=== PATIENT | female | born 1960 | race Caucasian/White ===

== ENCOUNTER 2016-11-13 08:30 | Day surgery (SDC) | payer OTHER ==
[~2016-11-13] VITALS: Ht 154.9 cm; Wt 44.5 kg
[~2016-11-13 08:30] MED LIST: ADVIL200 MG PO; ASPIR 8181 M1 PO; ATORVASTATIN TAB 40M PO; CELEXA40 MG PO; CORGARD80 MG PO; CRESTOR40 MG PO; CRESTOR5 MG PO; CYCLOBENZAPRINE5 MG PO; CYMBALTA30 MG PO; FIORICET 50-301 EACH PO; FIORICET,ESG1 TABLET PO; FLEXERIL5 MG PO; HYDROCODON-ACE1 EAC7 PO; LIPITOR40 MG PO; LIPITOR80 MG PO; LOPRESSOR50 MG PO; METOPROLOL TAR100 MG PO; NEURONTIN100 MG PO; NORVASC5 MG PO; OxyCONTIN PO; PLAVIX75 MG PO; PROVENTIL,2.5 MG/3 M IH; Pravachol PO; SUMATRIPTAN SU100 MG PO; TOPAMAX100 MG PO; TOPAMAX200 MG PO; TRAMADOL HCL50 MG PO; VICODIN 5-3001 EACH PO; VICODIN ES 7.51 EAC1 PO; ZOFRAN4 MG PO; oxyCODONE PO
== END 2016-11-13 10:32 | disposition home or self-care (01) ==
LOC: PAIN 08:30 → SDC 09:15 → PAIN 10:32
PROC: 3E0S33Z Introduction of Anti-inflammatory into Epidural Space, Percutaneous Approach (ICD-10-PCS; principal; 2016-11-13)
DX: M50.123 Cervical disc disorder at C6-C7 level with radiculopathy (principal); F41.9 Anxiety disorder, unspecified; M47.22 Other spondylosis with radiculopathy, cervical region; G89.29 Other chronic pain; R51 Headache; M79.1 Myalgia; F17.200 Nicotine dependence, unspecified, uncomplicated; I73.9 Peripheral vascular disease, unspecified; I10 Essential (primary) hypertension; E78.5 Hyperlipidemia, unspecified; Z95.820 Peripheral vascular angioplasty status with implants and grafts
CPT/HCPCS: J1030; J2250; J3010

== ENCOUNTER 2017-01-22 08:21 | Day surgery (SDC) | payer OTHER ==
[~2017-01-22] VITALS: Ht 154.9 cm; Wt 44.5 kg
== END 2017-01-22 09:50 | disposition home or self-care (01) ==
LOC: PAIN 08:21 → SDC 09:00 → PAIN 09:00
DX: M47.812 Spondylosis without myelopathy or radiculopathy, cervical region (principal); F41.9 Anxiety disorder, unspecified; Z79.891 Long term (current) use of opiate analgesic; C50.919 Malignant neoplasm of unspecified site of unspecified female breast; R09.89 Other specified symptoms and signs involving the circulatory and respiratory systems; E78.5 Hyperlipidemia, unspecified; I73.9 Peripheral vascular disease, unspecified; M85.80 Other specified disorders of bone density and structure, unspecified site; I10 Essential (primary) hypertension; F17.200 Nicotine dependence, unspecified, uncomplicated
CPT/HCPCS: J1030; J2250; J3010; S0020

== ENCOUNTER 2017-01-29 08:39 | Day surgery (SDC) | payer OTHER ==
[~2017-01-29] VITALS: Ht 157.5 cm; Wt 45.4 kg
== END 2017-01-29 09:58 | disposition home or self-care (01) ==
LOC: PAIN 08:39
DX: M47.22 Other spondylosis with radiculopathy, cervical region (principal); F41.9 Anxiety disorder, unspecified; G89.29 Other chronic pain; Z85.3 Personal history of malignant neoplasm of breast; E78.5 Hyperlipidemia, unspecified; I10 Essential (primary) hypertension; I73.9 Peripheral vascular disease, unspecified; F17.200 Nicotine dependence, unspecified, uncomplicated; Z79.82 Long term (current) use of aspirin
CPT/HCPCS: J1030; J2250; J3010; S0020

== ENCOUNTER 2017-04-20 11:58 | Day surgery (SDC) | payer OTHER ==
[~2017-04-20] VITALS: Ht 154.9 cm; Wt 48.5 kg
== END 2017-04-20 14:20 | disposition home or self-care (01) ==
LOC: PAIN 11:58 → SDC 13:00 → PAIN 14:20
PROC: 01513ZZ Destruction of Cervical Nerve, Percutaneous Approach (ICD-10-PCS; principal; 2017-04-20)
DX: M47.22 Other spondylosis with radiculopathy, cervical region (principal); G89.29 Other chronic pain; M79.1 Myalgia; R51 Headache; M12.88 Other specific arthropathies, not elsewhere classified, other specified site; F17.200 Nicotine dependence, unspecified, uncomplicated; I73.9 Peripheral vascular disease, unspecified; G43.909 Migraine, unspecified, not intractable, without status migrainosus; I10 Essential (primary) hypertension; E78.5 Hyperlipidemia, unspecified; Z95.820 Peripheral vascular angioplasty status with implants and grafts; Z85.828 Personal history of other malignant neoplasm of skin; J44.9 Chronic obstructive pulmonary disease, unspecified; F32.9 Major depressive disorder, single episode, unspecified; Z79.82 Long term (current) use of aspirin
CPT/HCPCS: J1030; J2250; J3010; S0020

== ENCOUNTER 2017-04-27 07:43 | Day surgery (SDC) | payer OTHER ==
[~2017-04-27] VITALS: Ht 154.9 cm; Wt 48.6 kg
== END 2017-04-27 09:20 | disposition home or self-care (01) ==
LOC: PAIN 07:43 → SDC 08:30 → PAIN 09:20
DX: M47.22 Other spondylosis with radiculopathy, cervical region (principal); M50.11 Cervical disc disorder with radiculopathy, high cervical region; M54.2 Cervicalgia; G89.29 Other chronic pain; M79.1 Myalgia; J44.9 Chronic obstructive pulmonary disease, unspecified; I10 Essential (primary) hypertension; E78.5 Hyperlipidemia, unspecified; Z79.82 Long term (current) use of aspirin; Z79.02 Long term (current) use of antithrombotics/antiplatelets; Z79.891 Long term (current) use of opiate analgesic; F17.200 Nicotine dependence, unspecified, uncomplicated
CPT/HCPCS: J1030; J2250; J3010; S0020

== ENCOUNTER 2018-01-30 23:21 | Emergency (ER) | payer OTHER ==
[~2018-01-30] VITALS: Ht 157.5 cm; Wt 54.2 kg
[2018-01-31 00:39] LABS: BASOPHIL (%) 0.3 % (0-1); EOSINOPHIL (%) 1.9 % (0-5); EOSINOPHIL COUNT 0.1 K/uL (0-0.3); HEMATOCRIT 31.1 % (36.0-46.0); HEMOGLOBIN 10.3 G/DL (11.9-15.5); IMMATURE GRANULOCYTE (%) 0.5 % (0.0-0.7); LYMPHOCYTE COUNT 1.9 K/uL (1.0-2.8); MCH 28.2 PG (29.0-34.0); MCHC 33.1 G/DL (30.0-36.0); MCV 85.2 FL (83-99); MONOCYTE (%) 6.2 % (3-12); MONOCYTE COUNT 0.4 K/uL (0-0.8); NEUTROPHIL (%) 59.1 % (45-76); NEUTROPHIL COUNT 3.5 K/uL (1.8-6.4); PLATELET COUNT 187 K/uL (156-360); RBC DIS.WIDTH-CV 14.3 % (11.8-14.6); RBC DIS.WIDTH-SD 44.7 % (39-53); RED BLOOD COUNT 3.65 M/uL (3.80-5.20); WHITE BLOOD COUNT 5.8 K/uL (4.1-10.2)
[2018-01-31 01:00] LABS: TROP-I INTERPRETATION NEGATIVE; TROPONIN-I < 0.01 ng/mL (0.0-0.30)
[2018-01-31 01:06] LABS: ALBUMIN 3.6 g/dL (3.2-4.8); CHLORIDE 108 mEq/L (99-109); POTASSIUM 3.8 mEq/L (3.7-5.4); SODIUM 141 mEq/L (136-147)
[2018-01-31 01:08] LABS: GLUCOSE 81 mg/dL (70-99)
[2018-01-31 01:09] LABS: TOTAL PROTEIN 5.6 g/dL (6.4-8.3)
[2018-01-31 01:10] LABS: TOTAL BILIRUBIN 0.1 mg/dL (0.0-1.0)
[2018-01-31 01:12] LABS: ALKALINE PHOSPHATASE 92 IU/L (3-129); CREATININE 0.9 mg/dL (0.6-1.3); GFR ESTIMATE (CALCULATED) > 59 mL/min/
[2018-01-31 01:13] LABS: UREA NITROGEN (BUN) 14 mg/dL (9-23)
[2018-01-31 01:14] LABS: AST (GOT) 17 IU/L (2-34)
[2018-01-31 01:15] LABS: ALT (GPT) 12 IU/L (3-49)
[2018-01-31 02:19] VITALS: BP 122/66
== END 2018-01-31 02:20 | disposition home or self-care (01) ==
LOC: EME 23:21
PROVIDERS: Emergency Medicine
DX: R60.0 Localized edema (principal); R06.02 Shortness of breath; R06.01 Orthopnea; J44.9 Chronic obstructive pulmonary disease, unspecified; I10 Essential (primary) hypertension; Z95.5 Presence of coronary angioplasty implant and graft; Z79.02 Long term (current) use of antithrombotics/antiplatelets; Z79.82 Long term (current) use of aspirin; Z90.710 Acquired absence of both cervix and uterus; F17.200 Nicotine dependence, unspecified, uncomplicated
CPT/HCPCS: 71046; 80053; 83880; 84484; 85025; 93005; 99281; 99285